=== PATIENT | female | born 1940 | race Caucasian/White ===

== ENCOUNTER → 2016-09-01 | Outpatient (CLI) | payer MEDICARE | LOC: MC.RAD 14:18 | DX: Z12.31 Encounter for screening mammogram for malignant neoplasm of breast (principal); D24.2 Benign neoplasm of left breast; D24.1 Benign neoplasm of right breast ==

== ENCOUNTER → 2017-08-03 | Outpatient (CLI) | payer MEDICARE | LOC: COL.RAD 10:55 | DX: J84.10 Pulmonary fibrosis, unspecified (principal); J47.9 Bronchiectasis, uncomplicated ==

== ENCOUNTER → 2018-11-20 | Outpatient (CLI) | payer MEDICARE | LOC: MC.RAD 14:15 | DX: Z12.31 Encounter for screening mammogram for malignant neoplasm of breast (principal) ==

== ENCOUNTER 2020-11-16 20:20 | Observation (INO) | payer MEDICARE ==
[~2020-11-16] VITALS: Ht 154.9 cm; Wt 35.5 kg
[2020-11-16 21:12] LABS: BASO % 0.4 % (0.0-2.0); EOS # 0.2 (0.0-0.7); GRAN # 5.6 (1.4-6.5); GRAN % 73.3 % (42.2-75.2); HEMATOCRIT 41.2 % (37.0-47.0); HEMOGLOBIN 13.4 g/dl (12.5-16.0); LYMPH # 0.7 (1.2-3.4); LYMPH % 9.6 % (20.0-51.0); MEAN CELL VOLUME 90 fl (80.0-100.0); MEAN CORPUSCULAR HEMOGLOBIN 29 pg (27.0-31.0); MEAN CORPUSCULAR HGB CONC 33 g/dl (33.0-37.0); MEAN PLATELET VOLUME 9.7 fl (7.4-10.4); MONO % 13.3 % (1.7-9.3); PLATELET COUNT 227 K/mm3 (130-400); REDCELL DISTRIBUTION WIDTH-CV 12.6 % (11.5-14.5)
[2020-11-16 21:17] LABS: COLLECTION METHOD CLEAN CATCH
[2020-11-16 21:22] LABS: ALANINE AMINOTRANSFERASE 16 U/L (4-34); ALBUMIN 3.6 gm/dL (3.5-5.0); ALKALINE PHOSPHATASE 92 U/L (50-136); ANION GAP 2 mmol/L (7-16); AST,SGOT 35 U/L (15-37); BILIRUBIN,TOTAL 0.4 mg/dL (0.0-1.0); BLOOD UREA NITROGEN 18 mg/dL (7-17); CALCIUM 8.9 mg/dL (8.4-10.2); CARBON DIOXIDE 33 mmol/L (22-30); CHLORIDE 100 mmol/L (98-107); CREATININE, serum 0.81 (0.52-1.25); GLUCOSE 98 mg/dL (74-106); SODIUM 135 mmol/L (137-145); TOTAL PROTEIN 7.5 gm/dL (6.4-8.2)
[2020-11-16 21:24] LABS: PH 7 (5-8); SQUAMOUS EPITHELIAL None Seen /hpf; URINE APPEARANCE Clear; URINE BACTERIA None Seen /hpf; URINE BILIRUBIN Negative (NEGATIVE); URINE BLOOD Negative (NEGATIVE); URINE COLOR Yellow; URINE GLUCOSE Negative (NEGATIVE); URINE KETONE Negative (NEGATIVE); URINE LEUKOCYTE ESTERASE Negative (NEGATIVE); URINE NITRATE Negative (NEGATIVE); URINE PROTEIN(semi-quant) Negative (NEGATIVE); URINE RBC 0-2 /hpf
[2020-11-16 21:32] LABS: C-REACTIVE PROTEIN 3.3 mg/dL (0.0-0.9); CREATINE KINASE 30 U/L (30-135); LIPASE 523 U/L (23-300)
[2020-11-16 21:40] LABS: TROPONIN-I < 0.012 ng/mL (0.000-0.035)
[2020-11-16] MEDS ORDERED: ZYPREXA2.5 MG PO (22:06)
[2020-11-16] MEDS ORDERED: XANAX .25M0.25 MG/TA PO (22:07)
[2020-11-16] MEDS ORDERED: PAXIL 10MG10 MG PO (22:08)
[2020-11-16] MEDS ORDERED: BUSPAR10 MG PO (22:08)
[2020-11-16] MEDS ORDERED: VITAMIN D31000 I1 PO (22:09)
[2020-11-16] MEDS ORDERED: COMBIGAN 0.2%-010 ML OS (22:10)
[2020-11-16] MEDS ORDERED: TRUSOPT OCUMETE10 ML OS (22:11)
[2020-11-16] MEDS ORDERED: PREMARIN .3MG0.3 MG PO (22:11)
[2020-11-16 23:15] VITALS: BP 148/70; PULSE 87; TEMP 98
--- NOTE | 2020-11-16 23:30 | NUR ---
Arrived on unit via wheelchair with ED nurse, awake, alert, oriented x 4, able to verbalize all needs, reviewed home medications lists, patient states that she has no appetite and has been getting progressively weaker and is having a hard time doing adls at home, denies pain, nausea, admission assessment completed, updated on current plan of care, visiting hours and rules, verbalizes understanding.
[2020-11-17 03:23] VITALS: BP 122/48; PULSE 80; TEMP 98.4
[2020-11-17] MEDS ORDERED: ZYPREXA 5MG5 MG PO (05:35)
--- NOTE | 2020-11-17 05:57 | NUR ---
Resting quietly, updated daughter Gabriella on phone, updated patient on planned echo today, verbalized understanding. Denies pain, call oswald w/i reach, will continue to monitor.
[2020-11-17 07:21] VITALS: BP 131/45; PULSE 78; TEMP 98
--- NOTE | 2020-11-17 08:42 | NUR ---
Pt is alert and oriented x3. Vital signs stable. Heart tones are present, but extra beat is auscultated. Lung sounds are clear all lobes upon auscultation. Abdomen is flat and soft. No edema noted. No complaints at this time.
--- NOTE | 2020-11-17 10:15 | NUR ---
PT DA CALLED REPORTING CONCERN OVER PT. SHE REPORTED PT WAS SOB ON THE PHONE AND "REALLY WEAK". WENT TO ASSESS PT AND PT DENIES WEAKNESS/SOB AT THIS TIME. PULSE OX 96% ON RA, PT NONLABORED AT REST, NO OTHER NEEDS. DALY #[phone]
[2020-11-17 12:45] VITALS: BP 135/52; PULSE 87; TEMP 98
--- NOTE | 2020-11-17 12:48 | NUR ---
First visit from the geriatric social worker. No needs right now.
--- NOTE | 2020-11-17 14:03 | NUR ---
[employer] Screen Watcher collaborated with Hospitalist who advised patient is ready for discharge today. SW met with patient to discuss discharge planning. Patient's , Kishor (ph#[phone]) and daughter, Tianna (ph#[phone]) are at bedside. Patient sees Dr. Barba for primary care and obtains medications [facility] with no difficulties. Patient has a cane at home but does not use it. Patient reports she is independent with ADLS. Patient has a living will in EMR, but no DPOA-HC. Patient states she has completed DPOA-HC documents that designate Tianna. SW reviewed discharge plan with patient who advised she plans to return home upon discharge. SW discussed the option of Inpatient Rehab here in the hospital but she declines stating she wants to return home. SW discussed Home Health with patient who states she is agreeable but wants time to consider the options. LEONIE provided Medicare.gov list of HH agencies. LEONIE also contacted LEONIE Mahmood at Dr. Barba's office to provide update on discharge plan. LEONIE will fax referral once a decision on agency has been made. Discharge Plan: Home with Home Health
--- NOTE | 2020-11-17 16:28 | NUR ---
Pt discharged home via automobile with spouse and daughter. Escorted to vehicle with medical staff. No concerns at this time.
--- NOTE | 2020-11-17 16:30 | NUR ---
The patient's family chose [facility]. wash house worker, Charline, contacted Caregivers and they report that they would not be able to start therapy for the patient until next week. LEONIE notified the patient's daughter. The patient's daughter then chose [facility]. Charline HADLEY, attempted to contact Griselda at [facility]. Charline left a voicemail for Griselda and faxed over the referral. The patient is to discharge back home with her today, 11/17, and home health services for half-way/OT/PT from [facility].
== END 2020-11-17 16:20 | disposition home health service (06) ==
LOC: COL.ER 20:20 → MEDICAL 21:49
PROVIDERS: Emergency Medicine; ADMIT Student in an Organized Health Care Education/Training Program
DX: R53.1 Weakness (principal); R62.7 Adult failure to thrive; F32.9 Major depressive disorder, single episode, unspecified; F41.9 Anxiety disorder, unspecified; J84.9 Interstitial pulmonary disease, unspecified; I27.20 Pulmonary hypertension, unspecified; E43 Unspecified severe protein-calorie malnutrition; Z88.2 Allergy status to sulfonamides; Z90.710 Acquired absence of both cervix and uterus; Z87.891 Personal history of nicotine dependence; I08.3 Combined rheumatic disorders of mitral, aortic and tricuspid valves
CPT/HCPCS: 99223-AI; G0378; J1650; J7030

== ENCOUNTER 2021-01-07 23:31 | Emergency (ER) | payer MEDICARE ==
[~2021-01-07] VITALS: Ht 157.5 cm; Wt 45.5 kg
[~2021-01-07 23:31] MED LIST: BUSPAR10 MG PO; COMBIGAN 0.2%-010 ML OS; PAXIL 10MG10 MG PO; PREMARIN .3MG0.3 MG PO; TRUSOPT OCUMETE10 ML OS; VITAMIN D31000 I1 PO; XANAX .25M0.25 MG/TA PO; ZYPREXA 5MG5 MG PO; ZYPREXA2.5 MG PO
[2021-01-07 23:37] VITALS: TEMP 98
[2021-01-08 00:34] LABS: BASO # 0.1 (0.0-0.2); BASO % 0.3 % (0.0-2.0); EOS # 0.2 (0.0-0.7); GRAN # 18.9 (1.4-6.5); GRAN % 87.8 % (42.2-75.2); HEMATOCRIT 46.3 % (37.0-47.0); HEMOGLOBIN 15.2 g/dl (12.5-16.0); LYMPH # 0.7 (1.2-3.4); LYMPH % 3.4 % (20.0-51.0); MEAN CELL VOLUME 89 fl (80.0-100.0); MEAN CORPUSCULAR HEMOGLOBIN 29 pg (27.0-31.0); MEAN CORPUSCULAR HGB CONC 33 g/dl (33.0-37.0); MEAN PLATELET VOLUME 9.5 fl (7.4-10.4); MONO # 1.5 (0.1-0.6); MONO % 6.8 % (1.7-9.3); PLATELET COUNT 187 K/mm3 (130-400); RED BLOOD COUNT 5.18 M/mm3 (4.10-5.30); REDCELL DISTRIBUTION WIDTH-CV 12.9 % (11.5-14.5)
[2021-01-08 00:44] LABS: INR 1.2 (0.8-3.0); PROTHROMBIN TIME 13.6 SECONDS (9.7-12.8)
[2021-01-08 00:47] LABS: PARTIAL THROMBOPLASTIN TIME 30.1 SECONDS (26.0-37.0)
[2021-01-08 00:50] LABS: ALBUMIN 4.2 gm/dL (3.5-5.0); C-REACTIVE PROTEIN 1.7 mg/dL (0.0-0.9); CALCIUM 9.4 mg/dL (8.4-10.2); CREATININE, serum 0.67 (0.52-1.25); POTASSIUM 4.1 mmol/L (3.4-5.0); TOTAL PROTEIN 8.7 gm/dL (6.4-8.2)
[2021-01-08 01:12] LABS: TROPONIN-I 0.937 ng/mL (0.000-0.035)
[2021-01-08 01:27] LABS: ARTERIAL BLD GAS O2 SATURATION 94.1 % (92-100); ARTERIAL BLOOD GAS BASE EXCESS -0.6 (-2-2); ARTERIAL BLOOD GAS PCO2 39.4 mmHg (35-45); ARTERIAL BLOOD GAS PO2 67.6 mmHg (80-100)
[2021-01-08 04:30] VITALS: BP 126/98; PULSE 89
== END 2021-01-08 04:30 | disposition short-term general hospital (02) ==
LOC: COL.ER 23:31
PROVIDERS: Emergency Medicine
DX: R09.02 Hypoxemia (principal); R05 Cough; R06.02 Shortness of breath; R55 Syncope and collapse; R63.4 Abnormal weight loss; R62.7 Adult failure to thrive; D72.829 Elevated white blood cell count, unspecified; F41.9 Anxiety disorder, unspecified; Z87.891 Personal history of nicotine dependence; Z68.1 Body mass index [BMI] 19.9 or less, adult; Z79.899 Other long term (current) drug therapy
CPT/HCPCS: J0456; J0692; J1100; J1644; J7030; J7050; Q9967

== ENCOUNTER → 2021-11-25 | Outpatient (CLI) | payer MEDICARE ==
[2021-11-26 09:02] LABS: COLLECTION METHOD CLEAN CATCH
[2021-11-26 09:14] LABS: MUCOUS Present (NOT PRESENT); PH 6 (5-8); SQUAMOUS EPITHELIAL 0-2 /hpf (0-10); URINE APPEARANCE Clear (CLEAR/HAZY); URINE BACTERIA None Seen /hpf (NONE SEEN); URINE BILIRUBIN Negative (NEGATIVE); URINE BLOOD Negative (NEGATIVE); URINE COLOR Amber (YELLOW); URINE GLUCOSE Negative (NEGATIVE); URINE KETONE Negative (NEGATIVE); URINE LEUKOCYTE ESTERASE Trace (NEGATIVE); URINE NITRATE Negative (NEGATIVE); URINE PROTEIN(semi-quant) Negative (NEGATIVE); URINE RBC 0-2 /hpf (0-2); URINE UROBILINOGEN >=4.0 (NEGATIVE)
== END ==
LOC: ZCOL.LAB 21:09
PROVIDERS: Internal Medicine
DX: Z01.89 Encounter for other specified special examinations (principal)

== ENCOUNTER 2022-02-12 21:26 | Emergency (ER) | payer MEDICARE ==
[~2022-02-12] VITALS: Ht 152.4 cm; Wt 48.6 kg
[2022-02-12 21:28] VITALS: TEMP 97
[2022-02-12 22:15] LABS: INR 1.2 (0.8-3.0); PROTHROMBIN TIME 13.7 SECONDS (9.7-12.8)
[2022-02-12 22:16] LABS: BASO % 0.5 % (0.0-2.0); EOS # 0.3 K/mm3 (0.0-0.7); EOS % 5.1 % (0.0-4.0); GRAN # 4.3 K/mm3 (1.4-6.5); GRAN % 78.5 % (42.2-75.2); HEMATOCRIT 39.3 % (37.0-47.0); HEMOGLOBIN 13.6 g/dl (12.5-16.0); LYMPH # 0.4 K/mm3 (1.2-3.4); LYMPH % 7.3 % (20.0-51.0); MEAN CELL VOLUME 87 fl (80.0-100.0); MEAN CORPUSCULAR HEMOGLOBIN 30 pg (27-31); MEAN CORPUSCULAR HGB CONC 35 g/dl (33.0-37.0); MEAN PLATELET VOLUME 9.6 fl (7.4-10.4); MONO # 0.5 K/mm3 (0.1-0.6); MONO % 8.4 % (1.7-9.3); PLATELET COUNT 232 K/mm3 (130-400); RED BLOOD COUNT 4.53 M/mm3 (4.10-5.30); REDCELL DISTRIBUTION WIDTH-CV 11.9 % (11.5-14.5)
[2022-02-12 22:27] LABS: ALBUMIN 3.3 gm/dL (3.4-4.8); BILIRUBIN,TOTAL 0.5 mg/dL (0.2-1.2); CALCIUM 8.6 mg/dL (8.4-10.2); CREATININE, serum 0.83 mg/dL (0.57-1.11); POTASSIUM 4.5 mmol/L (3.5-4.5)
[2022-02-12 22:43] LABS: COLLECTION METHOD CLEAN CATCH
[2022-02-12 22:49] LABS: PH 6 (5-8); SQUAMOUS EPITHELIAL 0-2 /hpf (0-10); URINE APPEARANCE Clear (CLEAR/HAZY); URINE BACTERIA Rare /hpf (NONE SEEN); URINE BLOOD Negative (NEGATIVE); URINE COLOR Amber (YELLOW); URINE GLUCOSE 1+ (NEGATIVE); URINE KETONE Negative (NEGATIVE); URINE NITRATE Negative (NEGATIVE); URINE PROTEIN(semi-quant) Negative (NEGATIVE); URINE RBC 0-2 /hpf (0-2)
[2022-02-12 23:45] VITALS: BP 142/73; PULSE 75
== END 2022-02-12 23:45 | disposition home or self-care (01) ==
LOC: COL.ER 21:26
PROVIDERS: Physician Assistant
DX: S09.93XA Unspecified injury of face, initial encounter (principal); S01.112A Laceration without foreign body of left eyelid and periocular area, initial encounter; R42 Dizziness and giddiness; Z79.01 Long term (current) use of anticoagulants; Z86.711 Personal history of pulmonary embolism; Z87.891 Personal history of nicotine dependence; Z28.310 Unvaccinated for COVID-19; W18.39XA Other fall on same level, initial encounter
CPT/HCPCS: J7030

== ENCOUNTER 2022-09-07 22:54 | Emergency (ER) | payer MEDICARE ==
[~2022-09-07] VITALS: Ht 152.4 cm; Wt 45.5 kg
[2022-09-07 22:57] VITALS: TEMP 97.9
[2022-09-08 00:30] VITALS: BP 110/81; PULSE 80
== END 2022-09-08 00:30 | disposition home or self-care (01) ==
LOC: COL.ER 22:54
DX: Z00.00 Encounter for general adult medical examination without abnormal findings (principal)

== ENCOUNTER 2022-09-28 08:38 | Outpatient (RCR) | payer MEDICARE ==
[2022-09-28 08:47] LABS: COLLECTION METHOD CLEAN CATCH
[2022-09-28 09:04] LABS: PH 5.5 (5.0-8.5); URINE APPEARANCE Cloudy (CLEAR/HAZY); URINE COLOR Yellow (YELLOW)
[2022-09-28 09:07] LABS: URINE GLUCOSE Negative (NEGATIVE); URINE PROTEIN(semi-quant) 1+ (NEGATIVE)
[2022-09-28 09:08] LABS: URINE BLOOD Negative (NEGATIVE); URINE KETONE 1+ (NEGATIVE); URINE NITRATE Negative (NEGATIVE); URINE UROBILINOGEN 0.2 E.U/dL (0.2-1.0)
[2022-09-28 09:12] LABS: AMORPHOUS CRYSTAL Present (NOT PRESENT); MUCOUS Present (NOT PRESENT); SQUAMOUS EPITHELIAL 0-2 /hpf (0-10); URINE BACTERIA Rare /hpf (NONE SEEN); URINE RBC 0-2 /hpf (0-2)
== END 2022-10-21 | disposition home or self-care (01) ==
LOC: ZCOL.LAB
PROVIDERS: Internal Medicine
DX: N39.0 Urinary tract infection, site not specified (principal)